=== PATIENT | male | born 1940 | race Hispanic/Latino ===

== ENCOUNTER 2022-01-10 02:06 | Inpatient (IN) | payer MEDICARE ==
[~2022-01-10] VITALS: Ht 170.2 cm; Wt 99.0 kg
[2022-01-10 04:15] VITALS: BP 118/65
[2022-01-10] MEDS ORDERED: HYDROCODONE/ACETAMINOPHEN 5/325 MG TAB PO PRN (05:00)
[2022-01-10] MEDS ORDERED: CLONIDINE HCL 0.1 MG TABLET PO PRN (05:00)
[2022-01-10] MEDS ORDERED: LABETALOL 20MG SYG IV PRN (05:00)
[2022-01-10] MEDS ORDERED: TEMAZEPAM 15 MG CAPSULE PO PRN (05:00)
[2022-01-10] MEDS ORDERED: HYDRALAZINE 20MG/ML VIAL IV PRN (05:00)
[2022-01-10] MEDS: 0.9%NACL 1000ML 1,000 ML IV SCH (05:00)
[2022-01-10] MEDS ORDERED: LACTULOSE 20 GM/30 ML UDCUP PO PRN (05:00)
[2022-01-10] MEDS ORDERED: ALBUTEROL 0.083% 2.5 MG/3 ML INH IH PRN (05:00)
[2022-01-10] MEDS ORDERED: ONDANSETRON 4MG INJ IVP PRN (05:00)
[2022-01-10] MEDS ORDERED: AEC81 PO (06:12)
[2022-01-10] MEDS ORDERED: ENOX40DI8 SQ (06:12)
[2022-01-10] MEDS ORDERED: SACU1TAB PO (06:12)
[2022-01-10] MEDS ORDERED: METO-408 PO (06:12)
[2022-01-10] MEDS ORDERED: FURO40TA7 PO (06:12)
[2022-01-10] MEDS ORDERED: ATOR40TA71 PO (06:12)
[2022-01-10] MEDS ORDERED: APIX2.5T PO (06:12)
[2022-01-10 06:38] LABS: ALBUMIN 2.9 g/dL (3.5-5.0); CREATININE 1.8 mg/dL (0.5-1.5); POTASSIUM 3.7 mmol/L (3.5-5.1); TOTAL PROTEIN, SERUM 6.5 g/dL (6.0-8.3)
[2022-01-10] MEDS: INSULIN HUMULIN R 100 UNIT/ML 3ML SQ SCH ×6 (07:30→20:25)
[2022-01-10 08:44] VITALS: BP 117/57
[2022-01-10] MEDS ORDERED: MAGNESIUM SULFATE 1 GM/2 ML VIAL IM ONE (10:34)
[2022-01-10 12:47] VITALS: BP 99/68
[2022-01-10] MEDS: ENOXAPARIN SODIUM 30 MG/0.3 ML SQ SCH (15:02)
[2022-01-10] MEDS ORDERED: FUROSEMIDE 20MG VIAL IV ONE (16:00)
[2022-01-10 16:12] VITALS: BP 129/73
[2022-01-10 16:29] LABS: HEMATOCRIT 36.3 % (42-54); MEAN CORPUSCULAR HEMOGLOBIN 27.4 pg (27.0-33.0); MEAN CORPUSCULAR HGB CONC 31.7 g/dL (32.0-36.0); MEAN CORPUSCULAR VOLUME 86.4 fL (79-99); RED BLOOD CELL COUNT(AUTO) 4.2 MIL/uL (4.50-6.20); RED CELL DISTRIBUTION WIDTH 14.9 % (11.0-15.5); WHITE BLOOD COUNT (AUTO) 8.1 K/uL (4.8-10.8)
[2022-01-10 16:30] LABS: ABG BASE EXCESS 7.7 mmol/L (-2.0-3.0); ABG HCO3 32.7 mmol/L (21.0-28.0); ABG OXYGEN SATURATION 93.5 % (95.0-99.0); ABG PCO2 47 mmHg (35-48)
[2022-01-10] MEDS ORDERED: POTASSIUM CHLORIDE 10MEQ/100ML 100 ML IV PRN ×2 (16:30)
[2022-01-10] MEDS ORDERED: POTASSIUM CHLORIDE 10% ELIXIR 20 MEQ/15 ML UDCUP PO PRN (16:30)
[2022-01-10] MEDS ORDERED: GLUCAGON 1MG KIT 1 MG ML IM PRN (16:30)
[2022-01-10] MEDS ORDERED: DEXTROSE 50%-WATER 50 ML DISP.SYRIN IV PRN (16:30)
[2022-01-10] MEDS ORDERED: MAGNESIUM 2GM PREMIX 50ML 50 ML IV PRN (16:30)
[2022-01-10] MEDS ORDERED: KCL 20 MEQ ERTAB PO PRN (16:30)
[2022-01-10] MEDS ORDERED: LIDOCAINE HCL-MPF 1% 2ML VIAL IV PRN ×2 (16:30)
[2022-01-10 19:50] VITALS: BP 111/59
[2022-01-10] MEDS: ATORVASTATIN 40 MG TABLET PO SCH (20:20)
[2022-01-10] MEDS: ENOXAPARIN SODIUM 40 MG/0.4 ML SYRINGE SQ SCH (20:20)
[2022-01-10] MEDS: FUROSEMIDE 40 MG TABLET PO SCH (20:20)
[2022-01-10] MEDS: SACUBITRIL/VALSARTAN 1 EACH TABLET PO SCH (20:20)
[2022-01-11] VITALS: BP 116/61
[2022-01-11] MEDS: 0.9%NACL 1000ML 1,000 ML IV SCH (00:44)
[2022-01-11 04:00] VITALS: BP 110/64
[2022-01-11 04:09] LABS: HEMATOCRIT 36.2 % (42-54); MEAN CORPUSCULAR HEMOGLOBIN 27.2 pg (27.0-33.0); MEAN CORPUSCULAR HGB CONC 31.2 g/dL (32.0-36.0); MEAN CORPUSCULAR VOLUME 87.2 fL (79-99); RED BLOOD CELL COUNT(AUTO) 4.15 MIL/uL (4.50-6.20); RED CELL DISTRIBUTION WIDTH 14.7 % (11.0-15.5); WHITE BLOOD COUNT (AUTO) 7.5 K/uL (4.8-10.8)
[2022-01-11 04:20] LABS: INR 1.05 (0.85-1.15); PROTHROMBIN TIME 11.4 SEC (9.6-11.6)
[2022-01-11 04:21] LABS: ALBUMIN 2.8 g/dL (3.5-5.0); CREATININE 1.7 mg/dL (0.5-1.5); MAGNESIUM 1.7 mg/dL (1.80-2.40); PARTIAL THROMBOPLASTIN TIME 27.9 SEC (26.3-35.5); PHOSPHORUS 4.1 mg/dL (2.5-4.9); POTASSIUM 3.7 mmol/L (3.5-5.1); TOTAL PROTEIN, SERUM 6.3 g/dL (6.0-8.3)
[2022-01-11] MEDS: INSULIN HUMULIN R 100 UNIT/ML 3ML SQ SCH ×8 (06:15→20:49)
[2022-01-11] MEDS: FUROSEMIDE 40 MG TABLET PO SCH ×2 (08:24→20:15)
[2022-01-11] MEDS: METOPROLOL SUCCINATE 25 MG TAB.SR.24H PO SCH (08:25)
[2022-01-11] MEDS: ASPIRIN 81 MG EC TAB PO SCH (08:25)
[2022-01-11] MEDS: ENOXAPARIN SODIUM 30 MG/0.3 ML SQ SCH (08:26)
[2022-01-11] MEDS: SACUBITRIL/VALSARTAN 1 EACH TABLET PO SCH ×2 (08:27→20:15)
[2022-01-11] MEDS: ENOXAPARIN SODIUM 40 MG/0.4 ML SYRINGE SQ SCH ×2 (08:27→20:15)
[2022-01-11 08:38] VITALS: BP 127/65
[2022-01-11 12:23] VITALS: BP 113/74
[2022-01-11 16:03] LABS: HEMATOCRIT 37.2 % (42-54); MEAN CORPUSCULAR HEMOGLOBIN 27.6 pg (27.0-33.0); MEAN CORPUSCULAR VOLUME 86.3 fL (79-99); RED BLOOD CELL COUNT(AUTO) 4.31 MIL/uL (4.50-6.20); RED CELL DISTRIBUTION WIDTH 14.8 % (11.0-15.5); WHITE BLOOD COUNT (AUTO) 9.4 K/uL (4.8-10.8)
[2022-01-11 16:31] VITALS: BP 116/55
[2022-01-11 20:06] VITALS: BP 106/63
[2022-01-11] MEDS: ATORVASTATIN 40 MG TABLET PO SCH (20:15)
[2022-01-12] VITALS (32 sets, daily range): BP systolic 92–160; BP diastolic 33–95
[2022-01-12 04:19] LABS: HEMATOCRIT 37.5 % (42-54); MEAN CORPUSCULAR HEMOGLOBIN 27.6 pg (27.0-33.0); MEAN CORPUSCULAR HGB CONC 31.5 g/dL (32.0-36.0); MEAN CORPUSCULAR VOLUME 87.6 fL (79-99); RED BLOOD CELL COUNT(AUTO) 4.28 MIL/uL (4.50-6.20); RED CELL DISTRIBUTION WIDTH 15.1 % (11.0-15.5); WHITE BLOOD COUNT (AUTO) 6.9 K/uL (4.8-10.8)
[2022-01-12 04:26] LABS: PROTHROMBIN TIME 10.9 SEC (9.6-11.6)
[2022-01-12 04:28] LABS: PARTIAL THROMBOPLASTIN TIME 27.6 SEC (26.3-35.5)
[2022-01-12 04:39] LABS: ALBUMIN 2.9 g/dL (3.5-5.0); CREATININE 1.7 mg/dL (0.5-1.5); MAGNESIUM 1.9 mg/dL (1.80-2.40); POTASSIUM 3.7 mmol/L (3.5-5.1); TOTAL PROTEIN, SERUM 6.6 g/dL (6.0-8.3)
[2022-01-12] MEDS: INSULIN HUMULIN R 100 UNIT/ML 3ML SQ SCH ×4 (06:53→11:19)
[2022-01-12] MEDS: ENOXAPARIN SODIUM 30 MG/0.3 ML SQ SCH (07:18)
[2022-01-12] MEDS: SACUBITRIL/VALSARTAN 1 EACH TABLET PO SCH (07:18)
[2022-01-12] MEDS: ENOXAPARIN SODIUM 40 MG/0.4 ML SYRINGE SQ SCH (07:19)
[2022-01-12] MEDS: ASPIRIN 81 MG EC TAB PO SCH (09:03)
[2022-01-12] MEDS: METOPROLOL SUCCINATE 25 MG TAB.SR.24H PO SCH (09:03)
[2022-01-12] MEDS: FUROSEMIDE 40 MG TABLET PO SCH (09:04)
[2022-01-12] MEDS: CEFAZOLIN SODIUM 1 GM VIAL IVP SCH ×2 (11:00→14:00)
[2022-01-12] MEDS ORDERED: AMINOCAPROIC ACID 5,000MG VIAL ONE (13:06)
[2022-01-12] MEDS ORDERED: SODIUM BICARB 50MEQ 50ML VIAL 100 ML ONE (13:06)
[2022-01-12] MEDS ORDERED: ESMOLOL HCL 10 MG/ML 10 ML VIAL ONE (13:06)
[2022-01-12] MEDS ORDERED: NOREPINEPHRINE BITARTRATE 1 MG/1 ML ML IV ONE (13:06)
[2022-01-12] MEDS ORDERED: EPINEPHRINE PF 1MG (1:1,000) 1 MG/ML AMP ONE (13:06)
[2022-01-12] MEDS ORDERED: HEPARIN 10,000 UNIT/10ML (1,000 UNIT/ML) VIAL ONE ×2 (13:06→14:10)
[2022-01-12] MEDS ORDERED: PROTAMINE SULFATE 10 MG/ML 25ML VIAL IV ONE (13:06)
[2022-01-12] MEDS ORDERED: MIDAZOLAM HCL 1 MG/ML 2ML VIAL ONE (13:08)
[2022-01-12] MEDS ORDERED: FENTANYL CITRATE PF 50 MCG/1 ML 20ML VIAL IJ ONE (13:08)
[2022-01-12] MEDS ORDERED: PROPOFOL 10 MG/ML 20ML VIAL IV ONE (13:08)
[2022-01-12] MEDS ORDERED: ROCURONIUM 10MG/1ML SYR 10 MG/ML ML ONE (13:08)
[2022-01-12] MEDS ORDERED: KETAMINE 50MG/ML SYRINGE 50 MG/ML DISP.SYRIN IV ONE (13:10)
[2022-01-12] MEDS ORDERED: EPINEPHRINE 1 MG/ML 30ML VIAL IJ ONE (13:14)
[2022-01-12] MEDS ORDERED: PAPAVERINE HCL 30 MG/ML 2ML VIAL ONE (13:42)
[2022-01-12] MEDS ORDERED: CEFAZOLIN SODIUM 1 GM VIAL ONE ×2 (13:42→13:55)
[2022-01-12] MEDS ORDERED: 0.9%NACL 1000ML 1,000 ML IV ONE (13:55)
[2022-01-12] MEDS ORDERED: DELNIDO FORMULA 0 BAG IV ONE (14:09)
[2022-01-12] MEDS ORDERED: PHENYLEPHRINE HCL 10 MG/ML 1ML VIAL IV ONE (14:10)
[2022-01-12] MEDS ORDERED: AMIODARONE 150MG VIAL ONE (14:46)
[2022-01-12 14:47] LABS: ABG BASE EXCESS 8.1 mmol/L (-2.0-3.0); ABG HCO3 30.7 mmol/L (21.0-28.0); ABG OXYGEN SATURATION 99.5 % (95.0-99.0); ABG PCO2 35 mmHg (35-48)
[2022-01-12] MEDS ORDERED: VASOPRESSIN 20 UNITS/ML 1ML VIAL ONE (15:29)
[2022-01-12 15:58] LABS: ABG HCO3 27.5 mmol/L (21.0-28.0); ABG OXYGEN SATURATION 99.2 % (95.0-99.0); ABG PCO2 47 mmHg (35-48)
[2022-01-12] MEDS ORDERED: MORPHINE 2 MG SYG IV PRN ×2 (16:00→16:30)
[2022-01-12] MEDS ORDERED: TRAMADOL HCL 50 MG TABLET PO PRN (16:00)
[2022-01-12] MEDS ORDERED: MAGNESIUM 2GM PREMIX 50ML 50 ML IV PRN (16:00)
[2022-01-12] MEDS ORDERED: GLUCAGON 1MG KIT 1 MG ML IM PRN (16:00)
[2022-01-12] MEDS ORDERED: EPINEPHRINE PF 1MG (1:1,000) 10 MG in 0.9% NACL 250ML 240 ML IV PRN (16:00)
[2022-01-12] MEDS ORDERED: MORPHINE 4 MG SYG IV PRN (16:00)
[2022-01-12] MEDS ORDERED: ACETAMINOPHEN 650 MG SUPPOSITORY RC PRN (16:00)
[2022-01-12] MEDS ORDERED: 0.9%NACL 1000ML 1,000 ML IV SCH (16:00)
[2022-01-12] MEDS ORDERED: ACETAMINOPHEN 325 MG TAB PO PRN (16:00)
[2022-01-12] MEDS ORDERED: ONDANSETRON 4MG INJ IV PRN (16:00)
[2022-01-12] MEDS ORDERED: PROPOFOL 1000 MG/100 ML 100 ML IV PRN (16:00)
[2022-01-12] MEDS ORDERED: INSULIN REGULAR, HUMAN 3ML 100 UNIT in 0.9%NACL 100ML 99 ML IV SCH ×2 (16:00)
[2022-01-12] MEDS ORDERED: POTASSIUM PHOS 15 mMOL+NS250ML 250 ML IV PRN (16:00)
[2022-01-12] MEDS ORDERED: 0.9%NACL 10ML VIAL IVP PRN (16:00)
[2022-01-12] MEDS ORDERED: NITROGLYCERIN 50MG/D5W 250ML 250 BOT IV SCH (16:00)
[2022-01-12] MEDS ORDERED: 0.9% NACL 500ML IV.SOLN 500 ML IV SCH (16:00)
[2022-01-12] MEDS ORDERED: NOREPINEPHRIN 4MG/NS 250ML 250 ML IV PRN (16:00)
[2022-01-12] MEDS ORDERED: DEXTROSE 50%-WATER 50 ML DISP.SYRIN IV PRN (16:00)
[2022-01-12] MEDS ORDERED: AMINOCAPROIC ACID 5,000MG VIAL 15,000 MG in 0.9% NACL 250ML 250 ML IV SCH (16:00)
[2022-01-12 16:29] LABS: ABG BASE EXCESS -3.7 mmol/L (-2.0-3.0); ABG OXYGEN SATURATION 98.8 % (95.0-99.0); ABG PCO2 49 mmHg (35-48)
[2022-01-12] MEDS ORDERED: EPHEDRINE SULFATE 50 MG/ML AMPULE ONE (16:39)
[2022-01-12 17:13] LABS: ABG HCO3 23.2 mmol/L (21.0-28.0); ABG OXYGEN SATURATION 95.6 % (95.0-99.0); ABG PCO2 52 mmHg (35-48)
[2022-01-12 17:18] LABS: HEMATOCRIT 33.2 % (42-54); MEAN CORPUSCULAR HEMOGLOBIN 27.8 pg (27.0-33.0); MEAN CORPUSCULAR VOLUME 89.5 fL (79-99); PLATELET COUNT (AUTO) 259 K/uL (130-400); RED BLOOD CELL COUNT(AUTO) 3.71 MIL/uL (4.50-6.20); RED CELL DISTRIBUTION WIDTH 14.9 % (11.0-15.5)
[2022-01-12 17:29] LABS: INR 1.23 (0.85-1.15); PROTHROMBIN TIME 13.2 SEC (9.6-11.6)
[2022-01-12 17:30] LABS: CREATININE 1.7 mg/dL (0.5-1.5); MAGNESIUM 1.5 mg/dL (1.80-2.40); PARTIAL THROMBOPLASTIN TIME 20.8 SEC (26.3-35.5); PHOSPHORUS 3.5 mg/dL (2.5-4.9)
[2022-01-12] MEDS ORDERED: ASPIRIN 81MG CHEW TAB NG ONE (17:30)
[2022-01-12] MEDS ORDERED: AMIODARONE 900MG VIAL 360 MG in DEXTROSE 5%-WATER 200 ML IV SCH (17:30)
[2022-01-12 17:32] LABS: POTASSIUM 2.8 mmol/L (3.5-5.1)
[2022-01-12] MEDS ORDERED: SOLU-MEDROL 125MG VIAL ONE (17:51)
[2022-01-12 17:55] LABS: ABG BASE EXCESS 1.8 mmol/L (-2.0-3.0); ABG HCO3 27.2 mmol/L (21.0-28.0); ABG OXYGEN SATURATION 97.9 % (95.0-99.0); ABG PCO2 46 mmHg (35-48)
[2022-01-12] MEDS ORDERED: CALCIUM GLUC 1GM/10ML VIAL ONE (17:57)
[2022-01-12] MEDS ORDERED: AMIODARONE 900MG VIAL 150 MG in DEXTROSE 5%-WATER 100 ML IV SCH (18:00)
[2022-01-12 18:06] LABS: LYMPHOCYTES % (MANUAL) 17 % (22-44); MAN.DIFF COMMENT-IMPRESSION MANUAL DIFFERENTIAL; MONOCYTES % (MANUAL) 4 % (2-9); SEGMENTED NEUTROPHILS % 79 % (40-70)
[2022-01-12 18:08] LABS: PLATELET MORPHOLOGY COMMENT ADEQUATE
[2022-01-12] MEDS: POTASSIUM CHLORIDE 20MEQ/100ML 100 ML IV PRN ×7 (18:10→23:35)
[2022-01-12] MEDS: ALBUMIN (HUMAN) 5% 250 ML IV PRN ×2 (18:10→18:19)
[2022-01-12] MEDS: SODIUM BICARB 50MEQ 50ML VIAL IV PRN ×4 (18:17→22:19)
[2022-01-12 19:08] LABS: ABG BASE EXCESS 1.3 mmol/L (-2.0-3.0); ABG HCO3 25.7 mmol/L (21.0-28.0); ABG OXYGEN SATURATION 98.8 % (95.0-99.0); ABG PCO2 40 mmHg (35-48)
[2022-01-12] MEDS ORDERED: NOREPINEPHRINE 8MG/NS 250ML PREMIX IV SCH (19:30)
[2022-01-12 20:02] LABS: ABG BASE EXCESS 0.8 mmol/L (-2.0-3.0); ABG HCO3 24.7 mmol/L (21.0-28.0); ABG OXYGEN SATURATION 98.5 % (95.0-99.0); ABG PCO2 37 mmHg (35-48)
[2022-01-12] MEDS: ATORVASTATIN 40 MG TABLET PO SCH (21:01)
[2022-01-12] MEDS: CEFAZOLIN SODIUM 1 GM VIAL IV SCH (21:01)
[2022-01-12] MEDS: FAMOTIDINE 20MG VIAL IV SCH (21:01)
[2022-01-12 21:11] LABS: ABG BASE EXCESS 0.7 mmol/L (-2.0-3.0); ABG HCO3 25.6 mmol/L (21.0-28.0); ABG OXYGEN SATURATION 98.1 % (95.0-99.0); ABG PCO2 42 mmHg (35-48)
[2022-01-12] MEDS: TRAMADOL HCL 50 MG TABLET PO PRN (21:35)
[2022-01-12 22:16] LABS: ABG BASE EXCESS -0.7 mmol/L (-2.0-3.0); ABG HCO3 24.1 mmol/L (21.0-28.0); ABG OXYGEN SATURATION 97.8 % (95.0-99.0); ABG PCO2 40 mmHg (35-48)
[2022-01-12 23:24] LABS: ABG BASE EXCESS 1.8 mmol/L (-2.0-3.0); ABG HCO3 26.4 mmol/L (21.0-28.0); ABG PCO2 42 mmHg (35-48)
[2022-01-12] MEDS: AMIODARONE 900MG VIAL 540 MG in DEXTROSE 5%-WATER 300 ML IV SCH (23:24)
[2022-01-13] VITALS (100 sets, daily range): BP systolic 90–175; BP diastolic 10–104
[2022-01-13 00:25] LABS: ABG BASE EXCESS -0.1 mmol/L (-2.0-3.0); ABG HCO3 24.7 mmol/L (21.0-28.0); ABG OXYGEN SATURATION 97.3 % (95.0-99.0); ABG PCO2 41 mmHg (35-48)
[2022-01-13] MEDS: SODIUM BICARB 50MEQ 50ML VIAL IV PRN (00:29)
[2022-01-13] MEDS: VASOPRESSIN 20 UNITS in 0.9%NACL 100ML 100 ML IV SCH ×3 (00:48→21:03)
[2022-01-13] MEDS ORDERED: ARTIFICAL TEARS SOL 15 ML OU PRN (01:00)
[2022-01-13 01:20] LABS: ABG BASE EXCESS 3.8 mmol/L (-2.0-3.0); ABG HCO3 28.6 mmol/L (21.0-28.0); ABG OXYGEN SATURATION 96.2 % (95.0-99.0); ABG PCO2 43 mmHg (35-48)
[2022-01-13] MEDS ORDERED: CALCIUM GLUC 1GM/10ML VIAL ONE (01:23)
[2022-01-13] MEDS: CALCIUM GLUC 1GM 1 GM in 0.9%NACL 50ML 50 ML IV PRN ×3 (01:24→16:14)
[2022-01-13] MEDS: POTASSIUM CHLORIDE 20MEQ/100ML 100 ML IV PRN (01:24)
[2022-01-13 02:24] LABS: ABG BASE EXCESS 4.1 mmol/L (-2.0-3.0); ABG HCO3 28.6 mmol/L (21.0-28.0); ABG OXYGEN SATURATION 96.1 % (95.0-99.0); ABG PCO2 43 mmHg (35-48)
[2022-01-13 03:32] LABS: ABG BASE EXCESS 4.9 mmol/L (-2.0-3.0); ABG HCO3 28.9 mmol/L (21.0-28.0); ABG OXYGEN SATURATION 95.1 % (95.0-99.0); ABG PCO2 40 mmHg (35-48)
[2022-01-13 04:11] LABS: HEMATOCRIT 35.9 % (42-54); MEAN CORPUSCULAR HEMOGLOBIN 27.4 pg (27.0-33.0); MEAN CORPUSCULAR VOLUME 85.7 fL (79-99); RED BLOOD CELL COUNT(AUTO) 4.19 MIL/uL (4.50-6.20); RED CELL DISTRIBUTION WIDTH 15.9 % (11.0-15.5)
[2022-01-13 04:22] LABS: INR 1.1 (0.85-1.15); PROTHROMBIN TIME 11.9 SEC (9.6-11.6)
[2022-01-13 04:24] LABS: PARTIAL THROMBOPLASTIN TIME 23.1 SEC (26.3-35.5)
[2022-01-13 04:33] LABS: ALBUMIN 3.1 g/dL (3.5-5.0); CREATININE 1.8 mg/dL (0.5-1.5); MAGNESIUM 2.2 mg/dL (1.80-2.40); PHOSPHORUS 1.2 mg/dL (2.5-4.9); TOTAL PROTEIN, SERUM 6.4 g/dL (6.0-8.3)
[2022-01-13] MEDS: CEFAZOLIN SODIUM 1 GM VIAL IV SCH ×2 (04:35→12:17)
[2022-01-13 04:37] LABS: ABG BASE EXCESS 4.1 mmol/L (-2.0-3.0); ABG OXYGEN SATURATION 94.7 % (95.0-99.0); ABG PCO2 40 mmHg (35-48)
[2022-01-13 05:33] LABS: ABG BASE EXCESS 6.2 mmol/L (-2.0-3.0); ABG HCO3 29.9 mmol/L (21.0-28.0); ABG OXYGEN SATURATION 94.7 % (95.0-99.0); ABG PCO2 40 mmHg (35-48)
[2022-01-13] MEDS ORDERED: FUROSEMIDE 20MG VIAL IV SCH (07:30)
[2022-01-13] MEDS: FUROSEMIDE 20MG VIAL IV SCH ×2 (07:54→20:57)
[2022-01-13 08:00] LABS: ABG BASE EXCESS 3.5 mmol/L (-2.0-3.0); ABG OXYGEN SATURATION 94.5 % (95.0-99.0); ABG PCO2 37 mmHg (35-48)
[2022-01-13] MEDS: ASPIRIN 81 MG EC TAB PO SCH (08:26)
[2022-01-13] MEDS: FAMOTIDINE 20MG VIAL IV SCH ×2 (08:26→20:57)
[2022-01-13] MEDS: TRAMADOL HCL 50 MG TABLET PO PRN ×2 (08:27→11:58)
[2022-01-13 09:33] LABS: ABG BASE EXCESS 2.8 mmol/L (-2.0-3.0); ABG HCO3 26.5 mmol/L (21.0-28.0); ABG OXYGEN SATURATION 94.8 % (95.0-99.0); ABG PCO2 37 mmHg (35-48)
[2022-01-13 15:59] LABS: HEMATOCRIT 32.1 % (42-54); MEAN CORPUSCULAR HEMOGLOBIN 27.6 pg (27.0-33.0); MEAN CORPUSCULAR HGB CONC 32.4 g/dL (32.0-36.0); MEAN CORPUSCULAR VOLUME 85.1 fL (79-99); RED BLOOD CELL COUNT(AUTO) 3.77 MIL/uL (4.50-6.20); RED CELL DISTRIBUTION WIDTH 16.2 % (11.0-15.5); WHITE BLOOD COUNT (AUTO) 25.9 K/uL (4.8-10.8)
[2022-01-13] MEDS: AMIODARONE 200 MG TABLET PO SCH (16:17)
[2022-01-13 16:18] LABS: ABG BASE EXCESS 4.8 mmol/L (-2.0-3.0); ABG HCO3 28.4 mmol/L (21.0-28.0); ABG OXYGEN SATURATION 94.1 % (95.0-99.0); ABG PCO2 39 mmHg (35-48)
[2022-01-13 16:31] LABS: MAGNESIUM 2.1 mg/dL (1.80-2.40); POTASSIUM 5.1 mmol/L (3.5-5.1)
[2022-01-13 17:31] LABS: PHOSPHORUS 5.4 mg/dL (2.5-4.9)
[2022-01-13] MEDS: AMIODARONE 900MG VIAL 540 MG in DEXTROSE 5%-WATER 300 ML IV SCH (18:07)
[2022-01-13] MEDS: ATORVASTATIN 40 MG TABLET PO SCH (20:57)
[2022-01-13] MEDS: ACETAMINOPHEN 325 MG TAB PO PRN (21:23)
[2022-01-14] VITALS (59 sets, daily range): BP systolic 84–219; BP diastolic 35–219
[2022-01-14] MEDS: ACETAMINOPHEN 325 MG TAB PO PRN ×3 (04:33→20:31)
[2022-01-14 04:36] LABS: CREATININE 1.7 mg/dL (0.5-1.5); POTASSIUM 3.9 mmol/L (3.5-5.1)
[2022-01-14 04:52] LABS: ABG BASE EXCESS 4.3 mmol/L (-2.0-3.0); ABG OXYGEN SATURATION 91.1 % (95.0-99.0); ABG PCO2 38 mmHg (35-48)
[2022-01-14] MEDS ORDERED: CALCIUM GLUC 1GM/10ML VIAL ONE (04:54)
[2022-01-14] MEDS: CALCIUM GLUC 1GM 1 GM in 0.9%NACL 50ML 50 ML IV PRN (04:56)
[2022-01-14 05:21] LABS: HEMATOCRIT 30.6 % (42-54); MEAN CORPUSCULAR HEMOGLOBIN 27.9 pg (27.0-33.0); MEAN CORPUSCULAR HGB CONC 32.4 g/dL (32.0-36.0); MEAN CORPUSCULAR VOLUME 86.2 fL (79-99); RED BLOOD CELL COUNT(AUTO) 3.55 MIL/uL (4.50-6.20); RED CELL DISTRIBUTION WIDTH 16.2 % (11.0-15.5); WHITE BLOOD COUNT (AUTO) 25.9 K/uL (4.8-10.8)
[2022-01-14] MEDS: INSULIN HUMULIN R 100 UNIT/ML 3ML SQ SCH ×4 (07:30→20:20)
[2022-01-14] MEDS: METOPROLOL TARTRATE 25 MG TAB PO SCH ×2 (08:06→20:10)
[2022-01-14] MEDS: ASPIRIN 81 MG EC TAB PO SCH (08:09)
[2022-01-14] MEDS: FUROSEMIDE 20 MG TABLET PO SCH ×2 (08:09→16:39)
[2022-01-14] MEDS: FAMOTIDINE 20MG TAB PO SCH ×2 (08:09→20:30)
[2022-01-14] MEDS: AMIODARONE 200 MG TABLET PO SCH (08:09)
[2022-01-14] MEDS: AMIODARONE 900MG VIAL 540 MG in DEXTROSE 5%-WATER 300 ML IV SCH (11:05)
[2022-01-14] MEDS ORDERED: ARTIFICAL TEARS SOL 15 ML OU PRN (14:00)
[2022-01-14] MEDS: ATORVASTATIN 40 MG TABLET PO SCH (20:30)
[2022-01-15] VITALS (33 sets, daily range): BP systolic 93–139; BP diastolic 39–99
[2022-01-15 03:59] LABS: HEMATOCRIT 32.1 % (42-54); MEAN CORPUSCULAR HEMOGLOBIN 27.2 pg (27.0-33.0); MEAN CORPUSCULAR HGB CONC 31.2 g/dL (32.0-36.0); MEAN CORPUSCULAR VOLUME 87.5 fL (79-99); RED BLOOD CELL COUNT(AUTO) 3.67 MIL/uL (4.50-6.20); WHITE BLOOD COUNT (AUTO) 20.1 K/uL (4.8-10.8)
[2022-01-15 04:28] LABS: CREATININE 2.2 mg/dL (0.5-1.5); POTASSIUM 4.1 mmol/L (3.5-5.1)
[2022-01-15] MEDS: INSULIN HUMULIN R 100 UNIT/ML 3ML SQ SCH ×4 (07:18→20:19)
[2022-01-15] MEDS: AMIODARONE 900MG VIAL 540 MG in DEXTROSE 5%-WATER 300 ML IV SCH ×2 (07:21→23:55)
[2022-01-15] MEDS: ENOXAPARIN SODIUM 30 MG/0.3 ML SQ SCH (09:00)
[2022-01-15] MEDS: METOPROLOL TARTRATE 25 MG TAB PO SCH ×2 (09:01→20:20)
[2022-01-15] MEDS: AMIODARONE 200 MG TABLET PO SCH (09:01)
[2022-01-15] MEDS: FAMOTIDINE 20MG TAB PO SCH ×2 (09:01→20:19)
[2022-01-15] MEDS: ASPIRIN 81 MG EC TAB PO SCH (09:01)
[2022-01-15] MEDS: FUROSEMIDE 20 MG TABLET PO SCH ×2 (10:50→16:07)
[2022-01-15] MEDS: NYSTATIN 15 GM POWDER TP SCH (20:20)
[2022-01-15] MEDS: ATORVASTATIN 40 MG TABLET PO SCH (20:20)
[2022-01-16] VITALS (8 sets, daily range): BP systolic 93–127; BP diastolic 48–84
[2022-01-16 04:40] LABS: HEMATOCRIT 31.2 % (42-54); MEAN CORPUSCULAR HEMOGLOBIN 27.6 pg (27.0-33.0); MEAN CORPUSCULAR HGB CONC 32.1 g/dL (32.0-36.0); MEAN CORPUSCULAR VOLUME 86.2 fL (79-99); RED BLOOD CELL COUNT(AUTO) 3.62 MIL/uL (4.50-6.20); RED CELL DISTRIBUTION WIDTH 15.7 % (11.0-15.5); WHITE BLOOD COUNT (AUTO) 15.6 K/uL (4.8-10.8)
[2022-01-16 04:52] LABS: CREATININE 2.1 mg/dL (0.5-1.5); POTASSIUM 3.5 mmol/L (3.5-5.1)
[2022-01-16] MEDS: INSULIN HUMULIN R 100 UNIT/ML 3ML SQ SCH ×4 (07:30→20:58)
[2022-01-16] MEDS: NYSTATIN 15 GM POWDER TP SCH ×3 (09:00→20:09)
[2022-01-16] MEDS: FUROSEMIDE 20 MG TABLET PO SCH ×2 (10:49→17:21)
[2022-01-16] MEDS: AMIODARONE 200 MG TABLET PO SCH (10:50)
[2022-01-16] MEDS: ASPIRIN 81 MG EC TAB PO SCH (10:50)
[2022-01-16] MEDS: ENOXAPARIN SODIUM 30 MG/0.3 ML SQ SCH (10:50)
[2022-01-16] MEDS: FAMOTIDINE 20MG TAB PO SCH ×2 (10:50→20:06)
[2022-01-16] MEDS: METOPROLOL TARTRATE 25 MG TAB PO SCH ×2 (10:50→20:06)
[2022-01-16] MEDS: AMIODARONE 900MG VIAL 540 MG in DEXTROSE 5%-WATER 300 ML IV SCH (20:05)
[2022-01-16] MEDS: ATORVASTATIN 40 MG TABLET PO SCH (20:06)
[2022-01-17 00:03] VITALS: BP 108/64
[2022-01-17 03:03] VITALS: BP 123/68
[2022-01-17] MEDS: INSULIN HUMULIN R 100 UNIT/ML 3ML SQ SCH ×2 (06:00→12:11)
[2022-01-17 08:00] VITALS: BP 120/66
[2022-01-17] MEDS: ENOXAPARIN SODIUM 30 MG/0.3 ML SQ SCH (10:03)
[2022-01-17] MEDS: FUROSEMIDE 20 MG TABLET PO SCH (10:04)
[2022-01-17] MEDS: ASPIRIN 81 MG EC TAB PO SCH (10:04)
[2022-01-17] MEDS: METOPROLOL TARTRATE 25 MG TAB PO SCH (10:04)
[2022-01-17] MEDS: AMIODARONE 200 MG TABLET PO SCH (10:04)
[2022-01-17] MEDS: FAMOTIDINE 20MG TAB PO SCH (10:04)
[2022-01-17] MEDS: NYSTATIN 15 GM POWDER TP SCH ×2 (10:05→14:53)
[2022-01-17 12:00] VITALS: BP 130/77
[2022-01-17] MEDS ORDERED: POTASSIUM CHLORIDE 10% ELIXIR 20 MEQ/15 ML UDCUP PO PRN (12:00)
[2022-01-17] MEDS ORDERED: POTASSIUM CHLORIDE 20MEQ/100ML 100 ML IV PRN (12:00)
[2022-01-17] MEDS ORDERED: LIDOCAINE HCL-MPF 1% 2ML VIAL IV PRN (12:00)
[2022-01-17] MEDS: KCL 20 MEQ ERTAB PO PRN ×2 (12:04→14:52)
[2022-01-17] MEDS: AMIODARONE 900MG VIAL 540 MG in DEXTROSE 5%-WATER 300 ML IV SCH (15:12)
== END 2022-01-17 17:09 | DRG 235 ==
LOC: 2DH 04:10 → 2CV 01-12 14:04 → 2CH 01-15 05:42 → 2DH 01-16 03:54
PROVIDERS: ADMIT Internal Medicine Critical Care Medicine; ATTEND Internal Medicine Critical Care Medicine
PROC: 5A02210 Assistance with Cardiac Output using Balloon Pump, Continuous (ICD-10-PCS; 1930-01-12)
PROC: 30233N1 Transfusion of Nonautologous Red Blood Cells into Peripheral Vein, Percutaneous Approach (ICD-10-PCS; 2022-01-12)
PROC: 02100Z9 Bypass Coronary Artery, One Artery from Left Internal Mammary, Open Approach (ICD-10-PCS; principal; 2022-01-12 14:00)
PROC: 0211093 Bypass Coronary Artery, Two Arteries from Coronary Artery with Autologous Venous Tissue, Open Approach (ICD-10-PCS; 2022-01-12 14:00)
PROC: 06BP4ZZ Excision of Right Saphenous Vein, Percutaneous Endoscopic Approach (ICD-10-PCS; 2022-01-12 14:00)
DX: I25.10 Atherosclerotic heart disease of native coronary artery without angina pectoris (principal); I50.23 Acute on chronic systolic (congestive) heart failure; I47.2 Ventricular tachycardia; I48.20 Chronic atrial fibrillation, unspecified; N17.9 Acute kidney failure, unspecified; Z20.822 Contact with and (suspected) exposure to COVID-19; E11.9 Type 2 diabetes mellitus without complications; I11.0 Hypertensive heart disease with heart failure; E78.5 Hyperlipidemia, unspecified; I34.0 Nonrheumatic mitral (valve) insufficiency; E78.00 Pure hypercholesterolemia, unspecified; Z79.01 Long term (current) use of anticoagulants; Z79.899 Other long term (current) drug therapy; Z87.891 Personal history of nicotine dependence; Z79.84 Long term (current) use of oral hypoglycemic drugs
CPT/HCPCS: 36415; 36430; 36600; 71045; 76700; 80048; 80053; 82330; 82435; 82803; 82947; 82948; 83036; 83605; 83735; 83880; 84100; 84132; 84295; 85018; 85027; 85347; 85610; 85730; 86850; 86900; 86901; 86923; 87635; 93005; 93312; 93880; 94002; 94003; 94010; 94150; 94664; 97039; A4357; A7048; C1729; G0378; J0171; J0282; J0610; J0690; J1644; J1650; J1815; J1940; J2250; J2370; J2440; J2704; J2720; J2930; J3010; J3475; J3480; J3490; J7030; J7040; J7050; J7060; P9016; P9045